=== PATIENT | male | born 1940 | race Caucasian/White ===

== ENCOUNTER 2017-03-07 23:20 | Inpatient (IN) | payer OTHER ==
[~2017-03-07] VITALS: Ht 180.3 cm; Wt 99.7 kg
[~2017-03-07 23:20] MED LIST: AMARYL1 MG PO; DIOVAN HCT 81 TABLET PO; GLUCOPHAGE1000 MG PO; LO-DOSE ASPIRIN81 M2 PO; NEXIUM20 MG PO; TENORMIN50 MG PO; ZOCOR20 MG PO
[2017-03-08 07:00] VITALS: BP 153/75
[2017-03-08 10:20] LABS: POINT-OF-CARE METER ID UU13113675
[2017-03-08 10:45] VITALS: BP 146/70; BP 95/58
[2017-03-08 13:28] VITALS: BP 166/68
[2017-03-08 15:53] VITALS: BP 149/69
[2017-03-08 17:20] VITALS: BP 122/57
[2017-03-08 20:14] VITALS: BP 145/69
[2017-03-09 00:20] VITALS: BP 100/58; BP 124/56
[2017-03-09 04:22] VITALS: BP 133/57
[2017-03-09 05:50] LABS: HEMATOCRIT 31.6 % (38.0-50.0); MCV 99.7 FL (86-99)
[2017-03-09 08:00] VITALS: BP 137/46
[2017-03-09] MEDS ORDERED: OXYCODONE HCL5 MG PO (08:29)
[2017-03-09 11:50] VITALS: BP 134/63
== END 2017-03-09 12:25 | disposition home or self-care (01) | DRG 483 ==
LOC: ENRESERV 23:20 → 2SOUTH 03-08 05:24 → 3WEST 03-08 05:24 → 2SOUTH 03-08 12:47 → 3WEST 03-09 12:25
PROVIDERS: Orthopaedic Surgery
PROC: 0RRJ00Z Replacement of Right Shoulder Joint with Reverse Ball and Socket Synthetic Substitute, Open Approach (ICD-10-PCS; principal; 2017-03-08)
DX: M19.011 Primary osteoarthritis, right shoulder (principal); I10 Essential (primary) hypertension; G47.30 Sleep apnea, unspecified; E11.9 Type 2 diabetes mellitus without complications; Z87.891 Personal history of nicotine dependence; E66.9 Obesity, unspecified; Z68.30 Body mass index [BMI] 30.0-30.9, adult; R60.0 Localized edema; H91.93 Unspecified hearing loss, bilateral; E11.42 Type 2 diabetes mellitus with diabetic polyneuropathy; E53.8 Deficiency of other specified B group vitamins; E78.00 Pure hypercholesterolemia, unspecified; J30.9 Allergic rhinitis, unspecified; K21.9 Gastro-esophageal reflux disease without esophagitis
CPT/HCPCS: 82948; 85014; 85018; C1713; J0131; J0690; J1100; J2405; J2795; J3010; J7030; J7050; J7120